=== PATIENT | male | born 1990 | race Caucasian/White ===

== ENCOUNTER 2024-04-03 10:54 | Emergency (ER) | payer OTHER ==
[~2024-04-03] VITALS: Ht 182.9 cm; Wt 86.2 kg
[2024-04-03 12:45] VITALS: BP 139/80; O2SAT 97
== END 2024-04-03 12:47 | disposition home or self-care (01) ==
LOC: ER 11:21
DX: F41.9 Anxiety disorder, unspecified (principal); F32.A Depression, unspecified
CPT/HCPCS: A4606; A4663